=== PATIENT | male | born 1975 | race Caucasian/White ===

== ENCOUNTER 2023-04-28 19:12 | Emergency (ER) | payer OTHER, SELFPAY ==
[2023-04-28 19:13] VITALS: BP 163/108; PULSE 126; RESP 18; TEMP 36.6; O2SAT 100; BMI 28.8
--- NOTE | 2023-04-28 19:36 | EX.ED.GENINJ ---
HPI History of Present Illness Chief Complaint: Laceration Narrative Narrative: 47-year-old male, denies significant past medical history, unsure of his last tetanus immunization presents with laceration to the medial corner of his left eye. He states he was walking out of his office, and ran into a ledge. He sustained a laceration to the medial portion of his eye. He denies any loss of vision, loss of consciousness, or other injury. [facility] Home Medications NK 08/07/22 [History Last Taken Unknown] Allergy/AdvReac Type Severity Reaction Status Date / Time No Known Allergies Allergy Verified 04/28/23 19:14 Family History Grandmother Colon cancer Unknown Colon cancer Surgical History History of testicular surgery Hx of knee surgery Social History household members: spouse and children current occupational status: employed current occupation: [employer]s [employer] ROS ED ROS Narrative Constitutional: No fever, no chills. HEENT: No sore throat. No neck pain. No loss of vision. No rhinorrhea. Positive laceration to medial corner of the left eye. More in the lower lid. Cardiovascular: No chest pain. No palpitations. No pedal edema. Respiratory: No cough, no shortness of breath. Abdominal: No abdominal pain. No nausea. No vomiting. Genitourinary: No dysuria. No hematuria. Musculoskeletal: No myalgias. No arthralgias. Neurologic: No headaches. No dizziness. No lightheadedness. Skin: No rash. No change in color. Psychiatric: No depression. No anxiety. EXAM Physical Exam Narrative Exam Narrative: Afebrile. Vital signs noted. HEENT: Normocephalic. Less than 1 cm laceration medial canthus over lacrimal duct. PERRL, EOMI. Neck soft and supple. No point tenderness or step off. Cardiovascular: Regular rate and rhythm. No murmurs, rubs, or gallops appreciated. Respiratory: No tachypnea. Lungs clear to auscultation bilaterally. Gastrointestinal: Abdomen soft, nontender, with normoactive bowel sounds. No rebound or guarding. Neurological: Awake. Alert. Nonfocal, nonlateralizing. Skin: No rash. Normal color. No pallor. Musculoskeletal: No pedal edema. Full range of motion extremities. Const Vital Signs: 04/28/23 19:13 Temperature 97.8 F Temperature Source Temporal Pulse Rate 126 H Respiratory Rate 18 Blood Pressure 163/108 H Blood Pressure Mean 126 Pulse Ox 100 Oxygen Delivery Method Room Air MDM MDM MDM Narrative Medical decision making narrative: Patient will be updated on his tetanus diphtheria and pertussis immunization. Given the location of the laceration without active bleeding over the medial canthus and lacrimal gland/duct, I will discuss patient with the on-call injection wax molder, Dr. Caal. Based on the location, she prefers that erythromycin ointment, ophthalmic, be applied to the area and will close it in the office tomorrow, within 24 hours. Of note, patient refused his Tdap immunization. He was given the remainder of his erythromycin ointment, and I was instructed by Dr. Caal to have him follow-up with her at noon tomorrow. I feel that as there is no active bleeding, that he can be discharged to follow-up for wound closure. Return instructions to the emergency department were reviewed. Disposition is discharged home in stable condition. Discharge Plan Triage Chief Complaint: Laceration ED Provider: Jose Robbins Dx/Rx/DC Orders Clinical Impression: Laceration of eyelid and periocular area Instructions: ED Laceration Minimize Scars Prescriptions: No Action NK Primary Care Provider: Care Physician,No Primary Referrals: Mara Caal MD [Med Staff - Active Staff] - 1 Day Care Physician,No Primary [Primary Care Provider] - Activity Restrictions/Additional Instructions: Apply erythromycin ointment to the laceration twice a day. Follow-up with Dr. Caal with ophthalmology tomorrow at noon. Disposition Disposition: Home, Self Care
[2023-04-28] MEDS: Erythromycin Base 1 OPTH.TUBE 1 APPLIC LEFT EYE (20:02)
== END 2023-04-28 20:05 | disposition home or self-care (01) ==
PROVIDERS: Emergency Provider Emergency Medicine; Referring Provider Emergency Medicine; Visit Provider Emergency Medicine
DX: S01.112A Laceration without foreign body of left eyelid and periocular area, initial encounter (principal); W22.09XA Striking against other stationary object, initial encounter; Y93.01 Activity, walking, marching and hiking; Y92.89 Other specified places as the place of occurrence of the external cause
CPT/HCPCS: 90715; 99282